=== PATIENT | female | born 1940 | race African-American/Black ===

== ENCOUNTER 2016-08-22 17:35 | Inpatient (IN) | payer MEDICARE, MEDICAID ==
[~2016-08-22] VITALS: Ht 154.9 cm; Wt 59.0 kg
[~2016-08-22 17:35] MED LIST: ACET-2178 PO; CLON0.1T PO; FERR-63 PO; HYDR-523 PO; LEVO25TA7 PO; LISI-604 PO; OMEP20TA80 PO; TRAM50TA3 PO
[2016-08-22] MEDS ORDERED: SODIUM CHLORIDE 0.9% 500 ML IV ONE (18:00)
[2016-08-22 19:00] LABS: BASOPHILS % 0.3 % (0.0-2.0); EOSINOPHILS % 0.2 % (0.0-5.0); HEMATOCRIT. 22.6 % (36.0-48.0); HEMOGLOBIN. 7.5 g/dL (12.0-16.0); LYMPHOCYTES % 27.1 % (20.0-50.0); MEAN CORPUSCULAR HEMOGLOBIN 27.6 pg (28.0-32.0); MEAN CORPUSCULAR HGB CONC 33.3 g/dL (31.0-37.0); MEAN CORPUSCULAR VOLUME 82.9 fL (81.0-99.0); MEAN PLATELET VOLUME 10.7 fl (7.4-10.4); MONOCYTES % 10.3 % (2.0-8.0); NEUTROPHILS % 62.1 % (40.0-76.0); PLATELET 149 x1000/uL (130-400); RED BLOOD CELL COUNT 2.73 mill/uL (4.2-5.4); RED CELL DISTRIBUTION WIDTH 19.3 % (11.6-14.6); WHITE BLOOD COUNT 7.6 x1000/uL (4.5-11.0)
[2016-08-22 19:01] LABS: DIFFERENTIAL COMMENT 1
[2016-08-22 19:13] LABS: INR 1.2; PARTIAL THROMBOPLASTIN TIME 30.8 sec (24.0-34.0); PROTHROMBIN TIME 12.6 sec
[2016-08-22 19:16] LABS: ALANINE AMINOTRANSFERASE 8 IU/L (13-61); ALBUMIN 2.4 g/dL (3.4-5.0); ANION GAP 14; CARBON DIOXIDE 29 mEq/L (21-32); CHLORIDE 97 mEq/L (98-107); INDEX HEMOLYSI 1 (1-3); INDEX ICTERIC 1 (1-4); INDEX LIPEMIC 1 (1-3); TROPONIN I 0.05 ng/mL (0.00-0.04); UREA NITROGEN BLOOD 14 mg/dL (7-21); eGFR > 60 mL/min (>60)
[2016-08-22] MEDS ORDERED: INSULIN REGULAR (DRIP) 100 UNITS in SODIUM CHLORIDE 0.9% 100 ML IV ONE (20:15)
[2016-08-22 20:20] LABS: CLARITY URINE CLEAR (CLEAR); COLOR URINE YELLOW (YELLOW); GLUCOSE URINE 3+ (NEGATIVE); KETONES URINE 1+ (NEGATIVE); LEUKOCYTE ESTERASE URINE NEGATIVE (NEGATIVE); NITRITE URINE NEGATIVE (NEGATIVE); OCCULT BLOOD URINE 1+ (NEGATIVE); PH URINE 5.5 (4.5-8.0); PROTEIN URINE 1+ (NEGATIVE); SPECIFIC GRAVITY URINE 1.042 (1.005-1.030)
[2016-08-22] MEDS ORDERED: KETOROLAC 30MG/ML VIAL IV ONE (20:30)
[2016-08-22] MEDS ORDERED: INSULIN REGULAR (DRIP) 100 UNITS in SODIUM CHLORIDE 0.9% 100 ML IV NR (20:30)
[2016-08-22 20:35] LABS: BACTERIA URINE TRACE; RBC URINE 0-2 /hpf (0-2); SQUAMOUS EPITHELIAL CELL URINE FEW /lpf (RARE/1+); WBC URINE 0-2 /hpf (0-2)
[2016-08-22 20:37] LABS: *AMPHETAMINES SCREEN URINE NEGATIVE (NEGATIVE); *BARBITURATES SCREEN URINE NEGATIVE (NEGATIVE); *BENZODIAZEPINES SCREEN URINE NEGATIVE (NEGATIVE); *COCAINE SCREEN URINE NEGATIVE (NEGATIVE); CANNABINOID URINE SCREEN NEGATIVE (NEGATIVE); ECSTASY MDMA SCREEN URINE NEGATIVE (NEGATIVE); METHADONE URINE SCREEN NEGATIVE (NEGATIVE); OPIATES URINE SCREEN NEGATIVE (NEGATIVE); PHENCYCLIDINE URINE SCREEN NEGATIVE (NEGATIVE)
[2016-08-22] MEDS ORDERED: DEXTROSE 50% WATER 50ML SYRINGE IV PRN (22:45)
[2016-08-22] MEDS ORDERED: ACETAMINOPHEN 650MG/20.3ML UDC PO PRN (22:45)
[2016-08-22] MEDS ORDERED: PIPERACILLIN/TAZ 2.25G PREMIX 50 ML IV SCH (22:45)
[2016-08-22 23:40] VITALS: BP 120/52
[2016-08-23] MEDS: MORPHINE SULFATE 4 MG/ML CPJ (NOT FOR IM USE) IV PRN ×3 (00:15→22:16)
[2016-08-23] MEDS: SODIUM CHLORIDE 0.9% 1,000 ML IV SCH ×2 (01:18→12:05)
[2016-08-23] MEDS ORDERED: VANCOMYCIN 1 G PREMIX 200 ML IV NR (03:00)
[2016-08-23 04:00] VITALS: BP 110/57
[2016-08-23] MEDS: BLOOD SUGAR DIAGNOSTIC STRIP TEST SCH ×4 (06:26→20:44)
[2016-08-23 08:00] VITALS: BP 125/61
[2016-08-23] MEDS: PANTOPRAZOLE SODIUM 40 MG/VIAL IV SCH (09:00)
[2016-08-23] MEDS: INSULIN LISPRO 100 UNITS/ML SUBCUT SCH ×5 (09:07→21:22)
[2016-08-23 11:58] VITALS: BP 131/68
[2016-08-23] MEDS: INSULIN DETEMIR UD 100 UNITS/ML SYR SUBCUT SCH ×2 (14:55→21:33)
[2016-08-23] MEDS: CLINDAMYCIN 600 MG in DEXTROSE 5% WATER 50 ML IV SCH ×2 (14:58→22:46)
[2016-08-23] MEDS: VANCOMYCIN 750 MG PREMIX 150 ML IV SCH (15:52)
[2016-08-23 15:59] VITALS: BP 106/85
[2016-08-23 17:53] LABS: HEMATOCRIT 23.6 % (36.0-48.0); HEMOGLOBIN 7.8 g/dL (12.0-16.0); MEAN CORPUSCULAR HEMOGLOBIN 27.3 pg (28.0-32.0); MEAN CORPUSCULAR HGB CONC 32.9 g/dL (31.0-37.0); PLATELET 141 x1000/uL (130-400); RED BLOOD CELL COUNT 2.84 mill/uL (4.2-5.4); RED CELL DISTRIBUTION WIDTH 18.5 % (11.6-14.6)
[2016-08-23 18:22] LABS: ALANINE AMINOTRANSFERASE 12 IU/L (13-61); ALBUMIN 2.2 g/dL (3.4-5.0); ANION GAP 10; BILIRUBIN DIRECT 0.2 mg/dL (0.0-0.2); CALCIUM 8.9 mg/dL (8.5-10.1); CARBON DIOXIDE 29 mEq/L (21-32); CHLORIDE 99 mEq/L (98-107); INDEX HEMOLYSI 1 (1-3); INDEX ICTERIC 1 (1-4); INDEX LIPEMIC 1 (1-3); IRON 83 ug/dL (50-175); PHOSPHORUS 1.8 mg/dL (2.5-4.9); TOTAL IRON BINDING CAPACITY 203 ug/dL (250-450); UREA NITROGEN BLOOD 12 mg/dL (7-21); URIC ACID 3.8 mg/dL (2.6-7.2); eGFR > 60 mL/min (>60)
[2016-08-23 20:00] VITALS: BP 139/74
[2016-08-23] MEDS ORDERED: POTASSIUM PHOS,M-BASIC-D-BASIC 20 MMOL in DEXT 5% WATER 243.3333 ML IV NR (21:00)
[2016-08-24] VITALS: BP 122/76
[2016-08-24] MEDS: SODIUM CHLORIDE 0.9% 1,000 ML IV SCH ×2 (01:25→14:09)
[2016-08-24] MEDS: MORPHINE SULFATE 4 MG/ML CPJ (NOT FOR IM USE) IV PRN ×2 (02:57→15:41)
[2016-08-24] MEDS: VANCOMYCIN 750 MG PREMIX 150 ML IV SCH ×2 (02:59→15:01)
[2016-08-24 04:00] VITALS: BP 125/81
[2016-08-24] MEDS: CLINDAMYCIN 600 MG in DEXTROSE 5% WATER 50 ML IV SCH ×3 (05:36→21:33)
[2016-08-24 06:43] LABS: HEMATOCRIT 22.7 % (36.0-48.0); HEMOGLOBIN 7.5 g/dL (12.0-16.0); MEAN CORPUSCULAR HEMOGLOBIN 27.2 pg (28.0-32.0); MEAN CORPUSCULAR HGB CONC 33.1 g/dL (31.0-37.0); MEAN CORPUSCULAR VOLUME 82.3 fL (81.0-99.0); RED BLOOD CELL COUNT 2.75 mill/uL (4.2-5.4); RED CELL DISTRIBUTION WIDTH 18.7 % (11.6-14.6); WHITE BLOOD COUNT 6.9 x1000/uL (4.5-11.0)
[2016-08-24] MEDS: LEVOTHYROXINE SODIUM 25MCG TABLET PO SCH (06:51)
[2016-08-24] MEDS: BLOOD SUGAR DIAGNOSTIC STRIP TEST SCH ×4 (06:53→21:34)
[2016-08-24 07:14] LABS: CHLORIDE 100 mEq/L (98-107); INDEX HEMOLYSI 1 (1-3); INDEX ICTERIC 1 (1-4); INDEX LIPEMIC 1 (1-3)
[2016-08-24 07:26] LABS: ALANINE AMINOTRANSFERASE 9 IU/L (13-61); ALBUMIN 2.1 g/dL (3.4-5.0); ANION GAP 13; BILIRUBIN DIRECT < 0.1 mg/dL (0.0-0.2); CALCIUM 8.7 mg/dL (8.5-10.1); CARBON DIOXIDE 28 mEq/L (21-32); IRON 76 ug/dL (50-175); PHOSPHORUS 2.9 mg/dL (2.5-4.9); TOTAL IRON BINDING CAPACITY 199 ug/dL (250-450); UREA NITROGEN BLOOD 11 mg/dL (7-21); eGFR > 60 mL/min (>60)
[2016-08-24 07:46] LABS: PLATELET 141 x1000/uL (130-400)
[2016-08-24 08:00] VITALS: BP 147/82
[2016-08-24] MEDS: PANTOPRAZOLE SODIUM 40 MG/VIAL IV SCH (09:16)
[2016-08-24] MEDS: INSULIN LISPRO 100 UNITS/ML SUBCUT SCH ×7 (09:20→21:44)
[2016-08-24] MEDS: INSULIN DETEMIR UD 100 UNITS/ML SYR SUBCUT SCH ×2 (11:09→21:45)
[2016-08-24 12:17] VITALS: BP 130/90
[2016-08-24 16:00] VITALS: BP 137/80
[2016-08-24 20:00] VITALS: BP 159/88
[2016-08-25] VITALS: BP 157/77
[2016-08-25] MEDS: MORPHINE SULFATE 4 MG/ML CPJ (NOT FOR IM USE) IV PRN ×3 (00:14→21:55)
[2016-08-25 04:00] VITALS: BP 158/80
[2016-08-25] MEDS ORDERED: VANCOMYCIN 1 G PREMIX 200 ML IV SCH (06:00)
[2016-08-25 06:04] LABS: BASOPHILS % 0.3 % (0.0-2.0); DIFFERENTIAL COMMENT 0; EOSINOPHILS % 1.3 % (0.0-5.0); HEMATOCRIT. 22.9 % (36.0-48.0); HEMOGLOBIN. 7.5 g/dL (12.0-16.0); LYMPHOCYTES % 43.5 % (20.0-50.0); MEAN CORPUSCULAR HEMOGLOBIN 26.7 pg (28.0-32.0); MEAN CORPUSCULAR HGB CONC 32.5 g/dL (31.0-37.0); MEAN CORPUSCULAR VOLUME 82.2 fL (81.0-99.0); MEAN PLATELET VOLUME 10.2 fl (7.4-10.4); MONOCYTES % 10.3 % (2.0-8.0); NEUTROPHILS % 44.6 % (40.0-76.0); PLATELET 132 x1000/uL (130-400); RED BLOOD CELL COUNT 2.79 mill/uL (4.2-5.4); RED CELL DISTRIBUTION WIDTH 18.7 % (11.6-14.6)
[2016-08-25 06:28] LABS: ALANINE AMINOTRANSFERASE 10 IU/L (13-61); ANION GAP 12; CALCIUM 8.4 mg/dL (8.5-10.1); CARBON DIOXIDE 30 mEq/L (21-32); CHLORIDE 102 mEq/L (98-107); HDL CHOLESTEROL 23 mg/dL (40-59); INDEX HEMOLYSI 1 (1-3); INDEX ICTERIC 1 (1-4); INDEX LIPEMIC 1 (1-3); LDL CHOLESTEROL 60 mg/dL (5-100); PHOSPHORUS 2.3 mg/dL (2.5-4.9); PREALBUMIN 8.3 mg/dL (20.0-40.0); TRIGLYCERIDE 137 mg/dL (0-150); UREA NITROGEN BLOOD 9 mg/dL (7-21); URIC ACID 2.8 mg/dL (2.6-7.2); eGFR > 60 mL/min (>60)
[2016-08-25] MEDS: CLINDAMYCIN 600 MG in DEXTROSE 5% WATER 50 ML IV SCH ×3 (06:41→21:55)
[2016-08-25] MEDS: LEVOTHYROXINE SODIUM 25MCG TABLET PO SCH (06:42)
[2016-08-25] MEDS: BLOOD SUGAR DIAGNOSTIC STRIP TEST SCH ×4 (06:42→21:55)
[2016-08-25] MEDS: INSULIN LISPRO 100 UNITS/ML SUBCUT SCH ×8 (06:43→21:54)
[2016-08-25] MEDS: SODIUM CHLORIDE 0.9% 1,000 ML IV SCH ×2 (06:47→17:25)
[2016-08-25 08:00] VITALS: BP 155/80
[2016-08-25] MEDS: PANTOPRAZOLE SODIUM 40 MG/VIAL IV SCH (09:00)
[2016-08-25] MEDS: INSULIN DETEMIR UD 100 UNITS/ML SYR SUBCUT SCH ×2 (10:16→21:53)
[2016-08-25] MEDS ORDERED: POTASSIUM CHLORIDE 20MEQ TABLET SR PO SCH (10:45)
[2016-08-25] MEDS ORDERED: LIDOCAINE HCL 1% 20ML VIAL (Pyxis) INJ INJ SCH (11:00)
[2016-08-25] MEDS ORDERED: MAGNESIUM HYDROXIDE 400MG/5ML 30ML UDC PO PRN (11:00)
[2016-08-25 11:26] LABS: INDEX HEMOLYSI 1 (1-3); INDEX ICTERIC 1 (1-4); INDEX LIPEMIC 1 (1-3); IRON 77 ug/dL (50-175); TOTAL IRON BINDING CAPACITY 220 ug/dL (250-450)
[2016-08-25] MEDS: LISINOPRIL 20MG TABLET PO SCH (11:32)
[2016-08-25 12:00] VITALS: BP 143/107
[2016-08-25] MEDS ORDERED: AMIKACIN SULFATE 440 MG in SODIUM CHLORIDE 0.9% 100 ML IV SCH (12:00)
[2016-08-25 20:00] VITALS: BP 156/87
[2016-08-25] MEDS ORDERED: ZOLPIDEM TARTRATE 5MG TABLET PO PRN (21:00)
[2016-08-26] VITALS: BP 164/84
[2016-08-26 04:00] VITALS: BP 156/80
[2016-08-26] MEDS: AMIKACIN SULFATE 300 MG in SODIUM CHLORIDE 0.9% 100 ML IV SCH ×2 (05:03→18:08)
[2016-08-26] MEDS: MORPHINE SULFATE 4 MG/ML CPJ (NOT FOR IM USE) IV PRN ×2 (05:03→23:27)
[2016-08-26] MEDS: SODIUM CHLORIDE 0.9% 1,000 ML IV SCH ×2 (05:16→19:59)
[2016-08-26] MEDS: BLOOD SUGAR DIAGNOSTIC STRIP TEST SCH ×4 (06:16→21:35)
[2016-08-26] MEDS: CLINDAMYCIN 600 MG in DEXTROSE 5% WATER 50 ML IV SCH ×2 (06:20→14:11)
[2016-08-26] MEDS: LEVOTHYROXINE SODIUM 25MCG TABLET PO SCH (06:21)
[2016-08-26 07:24] LABS: ANION GAP 11; CALCIUM 8.5 mg/dL (8.5-10.1); CARBON DIOXIDE 30 mEq/L (21-32); CHLORIDE 103 mEq/L (98-107); INDEX HEMOLYSI 1 (1-3); INDEX ICTERIC 1 (1-4); INDEX LIPEMIC 1 (1-3); UREA NITROGEN BLOOD 8 mg/dL (7-21); eGFR > 60 mL/min (>60)
[2016-08-26 08:00] VITALS: BP 143/69
[2016-08-26] MEDS: INSULIN LISPRO 100 UNITS/ML SUBCUT SCH ×7 (09:08→21:54)
[2016-08-26] MEDS: PANTOPRAZOLE SODIUM 40 MG/VIAL IV SCH (09:12)
[2016-08-26] MEDS: FOLIC ACID 1MG TABLET PO SCH (09:12)
[2016-08-26] MEDS: LISINOPRIL 20MG TABLET PO SCH (09:12)
[2016-08-26 10:03] LABS: CLARITY URINE CLEAR (CLEAR); COLOR URINE YELLOW (YELLOW); GLUCOSE URINE NEGATIVE (NEGATIVE); KETONES URINE NEGATIVE (NEGATIVE); LEUKOCYTE ESTERASE URINE TRACE (NEGATIVE); NITRITE URINE NEGATIVE (NEGATIVE); OCCULT BLOOD URINE TRACE (NEGATIVE); PROTEIN URINE NEGATIVE (NEGATIVE); SPECIFIC GRAVITY URINE 1.012 (1.005-1.030); UROBILINOGEN URINE 0.2 E.U./dL (0.2-1.0)
[2016-08-26 10:25] LABS: SQUAMOUS EPITHELIAL CELL URINE FEW /lpf (RARE/1+)
[2016-08-26 10:26] LABS: BACTERIA URINE NONE SEEN; RBC URINE 0-2 /hpf (0-2); WBC URINE 0-2 /hpf (0-2)
[2016-08-26] MEDS: INSULIN DETEMIR UD 100 UNITS/ML SYR SUBCUT SCH ×2 (10:54→21:55)
[2016-08-26 12:00] VITALS: BP 97/48
[2016-08-26 16:00] VITALS: BP 169/81
[2016-08-26] MEDS: DIPHENOXYLATE/ATROPINE 2.5/0.025MG TABLET PO PRN ×2 (18:08→21:54)
[2016-08-26 20:00] VITALS: BP 151/81
[2016-08-27] VITALS: BP 157/75
[2016-08-27 04:00] VITALS: BP 153/77
[2016-08-27] MEDS: MORPHINE SULFATE 2 MG/ML CPJ (NOT FOR IM USE) IV PRN ×2 (05:10→12:40)
[2016-08-27] MEDS: AMIKACIN SULFATE 300 MG in SODIUM CHLORIDE 0.9% 100 ML IV SCH ×2 (06:00→06:54)
[2016-08-27 06:18] LABS: BASOPHILS % 0.4 % (0.0-2.0); EOSINOPHILS % 1.2 % (0.0-5.0); HEMATOCRIT. 22.9 % (36.0-48.0); HEMOGLOBIN. 7.6 g/dL (12.0-16.0); LYMPHOCYTES % 36.4 % (20.0-50.0); MEAN CORPUSCULAR HEMOGLOBIN 27.2 pg (28.0-32.0); MEAN CORPUSCULAR HGB CONC 33.1 g/dL (31.0-37.0); MEAN CORPUSCULAR VOLUME 82.1 fL (81.0-99.0); MEAN PLATELET VOLUME 10.1 fl (7.4-10.4); MONOCYTES % 6.7 % (2.0-8.0); NEUTROPHILS % 55.3 % (40.0-76.0); PLATELET 120 x1000/uL (130-400); RED BLOOD CELL COUNT 2.79 mill/uL (4.2-5.4); RED CELL DISTRIBUTION WIDTH 18.7 % (11.6-14.6)
[2016-08-27 06:52] LABS: DIFFERENTIAL COMMENT 1
[2016-08-27] MEDS: LEVOTHYROXINE SODIUM 25MCG TABLET PO SCH (06:55)
[2016-08-27] MEDS: BLOOD SUGAR DIAGNOSTIC STRIP TEST SCH ×3 (06:55→17:20)
[2016-08-27] MEDS: INSULIN LISPRO 100 UNITS/ML SUBCUT SCH ×6 (07:16→17:50)
[2016-08-27 08:00] VITALS: BP 145/67
[2016-08-27] MEDS: PANTOPRAZOLE SODIUM 40 MG/VIAL IV SCH (08:38)
[2016-08-27] MEDS: FOLIC ACID 1MG TABLET PO SCH (08:38)
[2016-08-27] MEDS: LISINOPRIL 20MG TABLET PO SCH (08:39)
[2016-08-27] MEDS: SODIUM CHLORIDE 0.9% 1,000 ML IV SCH (08:41)
[2016-08-27] MEDS: INSULIN DETEMIR UD 100 UNITS/ML SYR SUBCUT SCH (10:12)
[2016-08-27 12:00] VITALS: BP 153/64
[2016-08-27 16:00] VITALS: BP 141/69
[2016-08-27] MEDS ORDERED: INSU3INS6 SUBCUT (16:18)
[2016-08-27 16:26] VITALS: BP 141/69
== END 2016-08-27 18:40 | disposition home or self-care (01) | DRG 862 ==
LOC: ER 17:40 → CVICU 22:12 → 6WST 23:49
PROVIDERS: ADMIT Specialist; ATTEND Specialist
PROC: 02HV33Z Insertion of Infusion Device into Superior Vena Cava, Percutaneous Approach (ICD-10-PCS; principal; 2016-08-25)
PROC: B548ZZA Ultrasonography of Superior Vena Cava, Guidance (ICD-10-PCS; 2016-08-25)
PROC: B5181ZA Fluoroscopy of Superior Vena Cava using Low Osmolar Contrast, Guidance (ICD-10-PCS; 2016-08-25)
DX: T81.4XXA Infection following a procedure, initial encounter (principal); E43 Unspecified severe protein-calorie malnutrition; J18.9 Pneumonia, unspecified organism; L02.211 Cutaneous abscess of abdominal wall; D62 Acute posthemorrhagic anemia; K57.32 Diverticulitis of large intestine without perforation or abscess without bleeding; L03.311 Cellulitis of abdominal wall; E11.65 Type 2 diabetes mellitus with hyperglycemia; I10 Essential (primary) hypertension; E87.6 Hypokalemia; K66.0 Peritoneal adhesions (postprocedural) (postinfection); D63.8 Anemia in other chronic diseases classified elsewhere; E65 Localized adiposity; D64.9 Anemia, unspecified; Z90.710 Acquired absence of both cervix and uterus; Z91.14 Patient's other noncompliance with medication regimen; Z90.49 Acquired absence of other specified parts of digestive tract; Z79.899 Other long term (current) drug therapy; Z88.0 Allergy status to penicillin; Z68.24 Body mass index [BMI] 24.0-24.9, adult
CPT/HCPCS: 36415; 36569; 71010; 74176; 76937; 77001; 80048; 80053; 80061; 80076; 80150; 80202; 80305; 81001; 82607; 82728; 82746; 82962; 83036; 83540; 83550; 83605; 83735; 83880; 84100; 84134; 84484; 84550; 85025; 85027; 85610; 85651; 85730; 86850; 86900; 86920; 87040; 87086; 87493; 93005; 96361; 96365; 96375; 99291; A6261; C1725; C1893; C9113; J0278; J1815; J1885; J2270; J3370; J3490; J7030; J7040; J7050; J7060

== ENCOUNTER 2017-01-21 14:14 | Inpatient (IN) | payer MEDICARE, MEDICAID ==
[~2017-01-21] VITALS: Ht 162.6 cm; Wt 83.5 kg
[~2017-01-21 14:14] MED LIST changes: -ACET-2178 PO; +ATEN50TA PO; -CLON0.1T PO; -FERR-63 PO; -HYDR-523 PO; -LEVO25TA7 PO; -LISI-604 PO; +METF500T4 PO; -OMEP20TA80 PO; +TOUJEO; -TRAM50TA3 PO; +VITAMIN D3 PO
[2017-01-21] MEDS ORDERED: ONDANSETRON HCL 4MG/2ML VIAL IV STA (14:57)
[2017-01-21] MEDS ORDERED: MORPHINE SULFATE 4 MG/ML CPJ (NOT FOR IM USE) IV STA (14:57)
[2017-01-21 15:18] LABS: HEMATOCRIT. 28.2 % (36.0-48.0); MEAN CORPUSCULAR HEMOGLOBIN 24.6 pg (28.0-32.0); MEAN PLATELET VOLUME 8.6 fl (7.4-10.4); PLATELET 204 x1000/uL (130-400); RED BLOOD CELL COUNT 3.67 mill/uL (4.2-5.4); RED CELL DISTRIBUTION WIDTH 26.6 % (11.6-14.6)
[2017-01-21 15:30] LABS: CARBON DIOXIDE 31 mEq/L (21-32); CHLORIDE 98 mEq/L (98-107)
[2017-01-21 16:00] LABS: ATYPICAL LYMPHOCYTES 2; NUCLEATED RED BLOOD CELLS 4 /100 WBC; PLATELET ESTIMATE NORMAL
[2017-01-21 16:22] LABS: CLARITY URINE TURBID (CLEAR); COLOR URINE DARK YELLOW (YELLOW); GLUCOSE URINE NEGATIVE (NEGATIVE); KETONES URINE TRACE (NEGATIVE); LEUKOCYTE ESTERASE URINE 1+ (NEGATIVE); NITRITE URINE NEGATIVE (NEGATIVE); OCCULT BLOOD URINE 1+ (NEGATIVE); PH URINE 5.5 (4.5-8.0); PROTEIN URINE 3+ (NEGATIVE); SPECIFIC GRAVITY URINE 1.032 (1.005-1.030)
[2017-01-21] MEDS ORDERED: MORPHINE SULFATE 4 MG/ML CPJ (NOT FOR IM USE) IV NR (18:15)
[2017-01-21] MEDS ORDERED: LEVOFLOXACIN 750MG PREMIX 150 ML IV NR (18:15)
[2017-01-21] MEDS ORDERED: LORAZEPAM 2MG/ML CPJ IV NR (18:15)
[2017-01-21 21:00] VITALS: BP 139/64
[2017-01-21 21:30] VITALS: BP 139/64
[2017-01-21] MEDS ORDERED: DOCU-150 PO (21:51)
[2017-01-21] MEDS ORDERED: FERR-63 PO (21:51)
[2017-01-21] MEDS ORDERED: BRIM15DR2 EACHEYE (21:53)
[2017-01-21] MEDS ORDERED: TIMO15DR12 LEFTEYE (21:55)
[2017-01-21] MEDS ORDERED: TRAM50TA3 PO (21:57)
[2017-01-21] MEDS ORDERED: ONDANSETRON HCL 4MG/2ML VIAL IV PRN (23:15)
[2017-01-21] MEDS ORDERED: DEXTROSE 50% WATER 50ML SYRINGE IV PRN (23:15)
[2017-01-21] MEDS ORDERED: TRAMADOL 50MG TABLET PO PRN (23:15)
[2017-01-22] VITALS: BP 117/47
[2017-01-22] MEDS ORDERED: MAGNESIUM HYDROXIDE 400MG/5ML 30ML UDC PO NR
[2017-01-22 04:00] VITALS: BP 139/67
[2017-01-22] MEDS: BLOOD SUGAR DIAGNOSTIC STRIP TEST SCH ×4 (06:25→22:05)
[2017-01-22] MEDS: INSULIN LISPRO 100 UNITS/ML SUBCUT SCH ×4 (06:36→22:14)
[2017-01-22 07:36] VITALS: BP 141/54
[2017-01-22] MEDS: BRIMONIDINE 0.2% OPHTH DROPS 5ML BOTHEYE SCH ×2 (08:13→16:34)
[2017-01-22] MEDS: DOCUSATE SODIUM 100MG CAPSULE PO SCH ×3 (08:14→16:56)
[2017-01-22] MEDS: TIMOLOL MALEATE 0.5% OPHTH DROPS 5ML LEFTEYE SCH (08:14)
[2017-01-22] MEDS: ATENOLOL 50 MG TABLET PO SCH ×2 (08:14→22:13)
[2017-01-22] MEDS ORDERED: MAGNESIUM HYDROXIDE 400MG/5ML 30ML UDC PO PRN (09:00)
[2017-01-22] MEDS: ACETAMINOPHEN 325MG TABLET PO PRN (10:36)
[2017-01-22 11:38] VITALS: BP 132/54
[2017-01-22] MEDS ORDERED: BISACODYL 10MG SUPP PR PRN (13:15)
[2017-01-22] MEDS ORDERED: NA PHOS,M-B/NA PHOS,DI-BA ENEMA 118ML PR NR ×2 (13:15→14:15)
[2017-01-22] MEDS ORDERED: MAGNESIUM CITRATE 300ML SOLUTION PO NR (15:00)
[2017-01-22 15:59] VITALS: BP 142/46
[2017-01-22] MEDS: LEVOFLOXACIN 500MG PREMIX 100 ML IV SCH (18:04)
[2017-01-22] MEDS ORDERED: KETOROLAC 15MG/ML VIAL IV PRN (19:45)
[2017-01-22] MEDS ORDERED: MAGNESIUM CITRATE 300ML SOLUTION PO PRN (19:45)
[2017-01-22 20:00] VITALS: BP 120/97
[2017-01-22] MEDS: INSULIN DETEMIR UD 100 UNITS/ML SYR SUBCUT SCH (22:14)
[2017-01-22] MEDS: MORPHINE SULFATE 4 MG/ML CPJ (NOT FOR IM USE) IV PRN (22:43)
[2017-01-23] VITALS: BP 117/52
[2017-01-23] MEDS: MORPHINE SULFATE 4 MG/ML CPJ (NOT FOR IM USE) IV PRN (02:32)
[2017-01-23 04:00] VITALS: BP 127/62
[2017-01-23] MEDS: BLOOD SUGAR DIAGNOSTIC STRIP TEST SCH ×4 (05:54→21:10)
[2017-01-23] MEDS: INSULIN LISPRO 100 UNITS/ML SUBCUT SCH ×4 (06:17→21:34)
[2017-01-23 07:10] LABS: BASOPHILS % 1.9 % (0.0-2.0); EOSINOPHILS % 0.3 % (0.0-5.0); HEMATOCRIT. 26.4 % (36.0-48.0); HEMOGLOBIN. 8.5 g/dL (12.0-16.0); LYMPHOCYTES % 85.3 % (20.0-50.0); MEAN CORPUSCULAR HEMOGLOBIN 24.8 pg (28.0-32.0); MEAN PLATELET VOLUME 8.5 fl (7.4-10.4); MONOCYTES % 0.4 % (2.0-8.0); NEUTROPHILS % 12.1 % (40.0-76.0); PLATELET 152 x1000/uL (130-400); RED BLOOD CELL COUNT 3.43 mill/uL (4.2-5.4); RED CELL DISTRIBUTION WIDTH 26.8 % (11.6-14.6)
[2017-01-23 07:34] LABS: CARBON DIOXIDE 34 mEq/L (21-32); CHLORIDE 101 mEq/L (98-107); PHOSPHORUS 2.7 mg/dL (2.5-4.9)
[2017-01-23 07:38] VITALS: BP 133/73
[2017-01-23 07:43] LABS: TOTAL IRON BINDING CAPACITY 198 ug/dL (250-450)
[2017-01-23] MEDS: CYANOCOBALAMIN/FA/PYRIDOXINE TABLET PO SCH ×2 (09:14→17:49)
[2017-01-23] MEDS: DOCUSATE SODIUM 100MG CAPSULE PO SCH ×3 (09:14→17:49)
[2017-01-23] MEDS: BRIMONIDINE 0.2% OPHTH DROPS 5ML BOTHEYE SCH ×2 (09:15→17:49)
[2017-01-23] MEDS: ATENOLOL 50 MG TABLET PO SCH ×2 (09:15→21:32)
[2017-01-23] MEDS: IRON SUCROSE COMPLEX 100 MG/5 ML ML IV SCH ×2 (09:16→17:48)
[2017-01-23] MEDS: TIMOLOL MALEATE 0.5% OPHTH DROPS 5ML LEFTEYE SCH (09:16)
[2017-01-23] MEDS: MORPHINE SULFATE 2 MG/ML CPJ (NOT FOR IM USE) IV PRN ×2 (09:17→17:43)
[2017-01-23] MEDS: INSULIN DETEMIR UD 100 UNITS/ML SYR SUBCUT SCH ×2 (09:19→21:34)
[2017-01-23] MEDS ORDERED: LIDOCAINE HCL 1% 20ML VIAL (Pyxis) INJ ONE (11:09)
[2017-01-23] MEDS ORDERED: SODIUM BICARBONATE 4% (2.4MEQ) 5ML VIAL IV ONE (11:09)
[2017-01-23 16:00] VITALS: BP 144/79
[2017-01-23] MEDS: LEVOFLOXACIN 500MG PREMIX 100 ML IV SCH (17:43)
[2017-01-23 20:00] VITALS: BP 111/56
[2017-01-24] VITALS: BP 112/66
[2017-01-24] MEDS: MORPHINE SULFATE 2 MG/ML CPJ (NOT FOR IM USE) IV PRN ×4 (02:55→20:45)
[2017-01-24 04:00] VITALS: BP 117/68
[2017-01-24] MEDS: BLOOD SUGAR DIAGNOSTIC STRIP TEST SCH ×4 (06:12→21:18)
[2017-01-24] MEDS: INSULIN LISPRO 100 UNITS/ML SUBCUT SCH ×4 (06:21→21:00)
[2017-01-24 06:33] LABS: HEMATOCRIT. 26.1 % (36.0-48.0); HEMOGLOBIN. 8.4 g/dL (12.0-16.0); MEAN CORPUSCULAR HEMOGLOBIN 24.8 pg (28.0-32.0); MEAN CORPUSCULAR VOLUME 77.3 fL (81.0-99.0); PLATELET 116 x1000/uL (130-400); RED BLOOD CELL COUNT 3.38 mill/uL (4.2-5.4); RED CELL DISTRIBUTION WIDTH 27.1 % (11.6-14.6)
[2017-01-24 06:56] LABS: PLATELET ESTIMATE NORMAL
[2017-01-24 07:08] LABS: T4 FREE 1.14 ng/dL (0.76-1.46)
[2017-01-24 07:17] LABS: HEPATITIS B SURFACE ANTIGEN NEGATIVE
[2017-01-24 07:45] LABS: HEPATITIS B CORE AB IGM NEGATIVE
[2017-01-24 07:47] LABS: HEPATITIS A AB IGM NEGATIVE (NEGATIVE)
[2017-01-24 08:00] VITALS: BP 151/54
[2017-01-24] MEDS: BRIMONIDINE 0.2% OPHTH DROPS 5ML BOTHEYE SCH ×2 (08:03→17:14)
[2017-01-24] MEDS: ATENOLOL 50 MG TABLET PO SCH ×2 (08:04→21:00)
[2017-01-24] MEDS: CYANOCOBALAMIN/FA/PYRIDOXINE TABLET PO SCH ×2 (08:04→17:13)
[2017-01-24] MEDS: DOCUSATE SODIUM 100MG CAPSULE PO SCH ×3 (08:04→17:13)
[2017-01-24] MEDS: TIMOLOL MALEATE 0.5% OPHTH DROPS 5ML LEFTEYE SCH (08:04)
[2017-01-24] MEDS: IRON SUCROSE COMPLEX 100 MG/5 ML ML IV SCH (08:05)
[2017-01-24 08:39] LABS: CARCINO EMBRYONIC ANTIGEN < 0.1 ng/ml
[2017-01-24 09:32] LABS: ATYPICAL LYMPHOCYTES 3; NUCLEATED RED BLOOD CELLS 17 /100 WBC
[2017-01-24] MEDS: INSULIN DETEMIR UD 100 UNITS/ML SYR SUBCUT SCH ×2 (09:32→22:00)
[2017-01-24 09:34] LABS: PLATELET ESTIMATE SLIGHTLY DECREASED
[2017-01-24 12:00] VITALS: BP 132/65
[2017-01-24 16:00] VITALS: BP 134/74
[2017-01-24] MEDS: LEVOFLOXACIN 500MG PREMIX 100 ML IV SCH (18:04)
[2017-01-24 19:12] LABS: CLARITY URINE CLOUDY (CLEAR); COLOR URINE YELLOW (YELLOW); GLUCOSE URINE NEGATIVE (NEGATIVE); KETONES URINE NEGATIVE (NEGATIVE); LEUKOCYTE ESTERASE URINE NEGATIVE (NEGATIVE); NITRITE URINE NEGATIVE (NEGATIVE); OCCULT BLOOD URINE NEGATIVE (NEGATIVE); PH URINE >=9.0 (4.5-8.0); PROTEIN URINE 2+ (NEGATIVE); SPECIFIC GRAVITY URINE 1.016 (1.005-1.030)
[2017-01-24 20:00] VITALS: BP 131/84
[2017-01-24] MEDS: ZOLPIDEM TARTRATE 5MG TABLET PO PRN (23:15)
[2017-01-25] VITALS: BP 117/86
[2017-01-25 04:00] VITALS: BP 155/76
[2017-01-25] MEDS: BLOOD SUGAR DIAGNOSTIC STRIP TEST SCH ×4 (06:47→21:00)
[2017-01-25] MEDS: INSULIN LISPRO 100 UNITS/ML SUBCUT SCH ×5 (06:48→22:07)
[2017-01-25 07:48] LABS: HEMATOCRIT. 27.2 % (36.0-48.0); HEMOGLOBIN. 8.7 g/dL (12.0-16.0); MEAN CORPUSCULAR HEMOGLOBIN 24.7 pg (28.0-32.0); MEAN CORPUSCULAR VOLUME 77.6 fL (81.0-99.0); MEAN PLATELET VOLUME 8.3 fl (7.4-10.4); PLATELET 97 x1000/uL (130-400); RED CELL DISTRIBUTION WIDTH 26.4 % (11.6-14.6)
[2017-01-25 08:00] VITALS: BP 97/76
[2017-01-25 08:36] LABS: CARBON DIOXIDE 31 mEq/L (21-32); CHLORIDE 100 mEq/L (98-107); PHOSPHORUS 3.1 mg/dL (2.5-4.9)
[2017-01-25] MEDS: ATENOLOL 50 MG TABLET PO SCH ×2 (08:50→20:19)
[2017-01-25] MEDS: IRON SUCROSE COMPLEX 100 MG/5 ML ML IV SCH (08:59)
[2017-01-25] MEDS: DOCUSATE SODIUM 100MG CAPSULE PO SCH ×3 (09:00→17:00)
[2017-01-25] MEDS: TIMOLOL MALEATE 0.5% OPHTH DROPS 5ML LEFTEYE SCH (09:00)
[2017-01-25] MEDS: CYANOCOBALAMIN/FA/PYRIDOXINE TABLET PO SCH ×2 (09:00→17:00)
[2017-01-25] MEDS: BRIMONIDINE 0.2% OPHTH DROPS 5ML BOTHEYE SCH ×2 (09:01→17:00)
[2017-01-25] MEDS: INSULIN DETEMIR UD 100 UNITS/ML SYR SUBCUT SCH ×2 (09:55→22:08)
[2017-01-25 10:09] LABS: ATYPICAL LYMPHOCYTES 4; NUCLEATED RED BLOOD CELLS 7 /100 WBC; PLATELET ESTIMATE DECREASED
[2017-01-25 12:00] VITALS: BP_SYST 117; BP_SYST 193; BP_DIAS 78; BP_DIAS 87
[2017-01-25] MEDS: MORPHINE SULFATE 2 MG/ML CPJ (NOT FOR IM USE) IV PRN (13:58)
[2017-01-25 16:00] VITALS: BP 148/80
[2017-01-25] MEDS: MORPHINE SULFATE 4 MG/ML CPJ (NOT FOR IM USE) IV PRN ×3 (16:33→20:18)
[2017-01-25] MEDS: LEVOFLOXACIN 500MG PREMIX 100 ML IV SCH ×2 (19:00→19:40)
[2017-01-25 20:00] VITALS: BP 142/85
[2017-01-26] VITALS: BP 157/75
[2017-01-26] MEDS: ZOLPIDEM TARTRATE 5MG TABLET PO PRN (00:46)
[2017-01-26 04:00] VITALS: BP 155/77
[2017-01-26] MEDS: MORPHINE SULFATE 4 MG/ML CPJ (NOT FOR IM USE) IV PRN ×3 (07:01→20:43)
[2017-01-26] MEDS: INSULIN LISPRO 100 UNITS/ML SUBCUT SCH ×7 (07:10→20:48)
[2017-01-26] MEDS: BLOOD SUGAR DIAGNOSTIC STRIP TEST SCH ×4 (07:13→20:48)
[2017-01-26 08:00] VITALS: BP 158/77
[2017-01-26 08:58] LABS: HEMATOCRIT. 29.6 % (36.0-48.0); HEMOGLOBIN. 9.5 g/dL (12.0-16.0); MEAN CORPUSCULAR VOLUME 77.9 fL (81.0-99.0); RED CELL DISTRIBUTION WIDTH 27.2 % (11.6-14.6)
[2017-01-26] MEDS: IRON SUCROSE COMPLEX 100 MG/5 ML ML IV SCH (09:07)
[2017-01-26] MEDS: BRIMONIDINE 0.2% OPHTH DROPS 5ML BOTHEYE SCH ×2 (09:07→16:56)
[2017-01-26] MEDS: DOCUSATE SODIUM 100MG CAPSULE PO SCH ×3 (09:07→16:55)
[2017-01-26] MEDS: ATENOLOL 50 MG TABLET PO SCH ×2 (09:07→20:43)
[2017-01-26] MEDS: CYANOCOBALAMIN/FA/PYRIDOXINE TABLET PO SCH ×2 (09:07→16:55)
[2017-01-26] MEDS: TIMOLOL MALEATE 0.5% OPHTH DROPS 5ML LEFTEYE SCH (09:08)
[2017-01-26 09:30] LABS: CARBON DIOXIDE 31 mEq/L (21-32); CHLORIDE 99 mEq/L (98-107); PHOSPHORUS 3.2 mg/dL (2.5-4.9)
[2017-01-26] MEDS ORDERED: MIDAZOLAM HCL 2 MG/2 ML VIAL ONE (11:09)
[2017-01-26] MEDS ORDERED: PROPOFOL 200MG/20ML VIAL IV ONE (11:13)
[2017-01-26] MEDS ORDERED: SODIUM CHLORIDE 0.9% 1,000 ML IV SCH (11:32)
[2017-01-26] MEDS ORDERED: MORPHINE SULFATE 2 MG/ML CPJ (NOT FOR IM USE) IV PRN (11:45)
[2017-01-26] MEDS ORDERED: ONDANSETRON HCL 4MG/2ML VIAL IV PRN (11:45)
[2017-01-26 12:00] VITALS: BP 161/81
[2017-01-26 12:05] LABS: ATYPICAL LYMPHOCYTES 6; NUCLEATED RED BLOOD CELLS 4 /100 WBC
[2017-01-26 12:06] LABS: PLATELET ESTIMATE DECREASED
[2017-01-26 12:11] LABS: MEAN PLATELET VOLUME 8.3 fl (7.4-10.4); PLATELET 70 x1000/uL (130-400)
[2017-01-26] MEDS: INSULIN DETEMIR UD 100 UNITS/ML SYR SUBCUT SCH ×2 (12:25→21:56)
[2017-01-26 13:09] LABS: A/G RATIO 0.7 (0.7-1.7); ALBUMIN 3.1 g/dL (2.9-4.4); ALPHA-1-GLOBULIN 0.3 g/dL (0.0-0.4); ALPHA-2-GLOBULIN 0.7 g/dL (0.4-1.0); GAMMA GLOBULINS 2.8 g/dL (0.4-1.8); GLOBULIN TOTAL 4.7 g/dL (2.2-3.9); M-SPIKE Not Observed g/dL (Not Observed); TOTAL PROTEIN SERUM 7.8 g/dL (6.0-8.5)
[2017-01-26 16:00] VITALS: BP 155/67
[2017-01-26] MEDS: LEVOFLOXACIN 500MG PREMIX 100 ML IV SCH (18:04)
[2017-01-26 20:00] VITALS: BP 129/55
[2017-01-27] VITALS (7 sets, daily range): BP systolic 105–157; BP diastolic 55–78
[2017-01-27] MEDS: MORPHINE SULFATE 4 MG/ML CPJ (NOT FOR IM USE) IV PRN ×7 (01:09→22:14)
[2017-01-27] MEDS: INSULIN LISPRO 100 UNITS/ML SUBCUT SCH ×7 (06:31→21:00)
[2017-01-27] MEDS: BLOOD SUGAR DIAGNOSTIC STRIP TEST SCH ×4 (06:31→21:35)
[2017-01-27 08:15] LABS: HEPATITIS B SURFACE ANTIGEN NEGATIVE
[2017-01-27 08:43] LABS: HEPATITIS B CORE AB IGM NEGATIVE
[2017-01-27 08:44] LABS: HEPATITIS A AB IGM NEGATIVE (NEGATIVE)
[2017-01-27] MEDS: DOCUSATE SODIUM 100MG CAPSULE PO SCH ×3 (09:05→16:55)
[2017-01-27] MEDS: CYANOCOBALAMIN/FA/PYRIDOXINE TABLET PO SCH ×2 (09:05→16:56)
[2017-01-27] MEDS: ATENOLOL 50 MG TABLET PO SCH ×2 (09:06→20:07)
[2017-01-27] MEDS: TIMOLOL MALEATE 0.5% OPHTH DROPS 5ML LEFTEYE SCH (09:07)
[2017-01-27] MEDS: IRON SUCROSE COMPLEX 100 MG/5 ML ML IV SCH (09:07)
[2017-01-27] MEDS: BRIMONIDINE 0.2% OPHTH DROPS 5ML BOTHEYE SCH ×2 (09:07→17:09)
[2017-01-27] MEDS: INSULIN DETEMIR UD 100 UNITS/ML SYR SUBCUT SCH ×2 (10:25→21:38)
[2017-01-27] MEDS: LEVOFLOXACIN 500MG PREMIX 100 ML IV SCH (17:59)
[2017-01-28 00:39] VITALS: BP 132/58
[2017-01-28] MEDS: MORPHINE SULFATE 2 MG/ML CPJ (NOT FOR IM USE) IV PRN ×8 (00:58→19:57)
[2017-01-28 04:00] VITALS: BP 156/76
[2017-01-28 06:03] LABS: ALBUMIN URINE 53.5 % (.); ALPHA-2-GLOBULIN URINE 7.4 % (.); BETA GLOBULIN URINE 10.7 % (.); GAMMA GLOBULIN URINE 21.3 % (.); TOTAL PROTEIN RANDOM URINE 66.7 mg/dL (Not Estab.)
[2017-01-28] MEDS: BLOOD SUGAR DIAGNOSTIC STRIP TEST SCH ×4 (06:12→21:00)
[2017-01-28] MEDS: INSULIN LISPRO 100 UNITS/ML SUBCUT SCH ×7 (06:12→21:00)
[2017-01-28 08:00] VITALS: BP 102/78
[2017-01-28] MEDS: ATENOLOL 50 MG TABLET PO SCH ×2 (09:00→21:00)
[2017-01-28] MEDS: INSULIN DETEMIR UD 100 UNITS/ML SYR SUBCUT SCH ×2 (09:15→22:00)
[2017-01-28] MEDS: DOCUSATE SODIUM 100MG CAPSULE PO SCH ×3 (09:16→17:54)
[2017-01-28] MEDS: CYANOCOBALAMIN/FA/PYRIDOXINE TABLET PO SCH ×2 (09:16→18:15)
[2017-01-28] MEDS: TIMOLOL MALEATE 0.5% OPHTH DROPS 5ML LEFTEYE SCH (09:17)
[2017-01-28] MEDS: BRIMONIDINE 0.2% OPHTH DROPS 5ML BOTHEYE SCH ×2 (09:17→17:54)
[2017-01-28 12:00] VITALS: BP 130/74
[2017-01-28 14:30] VITALS: BP 159/63
[2017-01-28] MEDS: ACETAMINOPHEN 325MG TABLET PO PRN (18:15)
[2017-01-28] MEDS: LEVOFLOXACIN 500MG PREMIX 100 ML IV SCH (18:34)
[2017-01-28 19:54] VITALS: BP 135/59
[2017-01-28 20:31] LABS: CARBON DIOXIDE 26 mEq/L (21-32); CHLORIDE 97 mEq/L (98-107); PHOSPHORUS 2.4 mg/dL (2.5-4.9)
[2017-01-28] MEDS: DEXT 5%/0.45% NACL KCL 20MEQ/L 1,000 ML IV SCH (22:59)
[2017-01-29] VITALS: BP 107/61
[2017-01-29] MEDS: MORPHINE SULFATE 2 MG/ML CPJ (NOT FOR IM USE) IV PRN ×3 (00:41→07:36)
[2017-01-29 04:00] VITALS: BP 114/60
[2017-01-29 08:00] VITALS: BP 104/51
[2017-01-29] MEDS: DOCUSATE SODIUM 100MG CAPSULE PO SCH ×2 (08:29→12:35)
[2017-01-29] MEDS: TIMOLOL MALEATE 0.5% OPHTH DROPS 5ML LEFTEYE SCH (08:29)
[2017-01-29] MEDS: CYANOCOBALAMIN/FA/PYRIDOXINE TABLET PO SCH (08:29)
[2017-01-29] MEDS: BRIMONIDINE 0.2% OPHTH DROPS 5ML BOTHEYE SCH (08:30)
[2017-01-29] MEDS: ATENOLOL 50 MG TABLET PO SCH (08:33)
[2017-01-29] MEDS: INSULIN DETEMIR UD 100 UNITS/ML SYR SUBCUT SCH (09:55)
[2017-01-29 12:00] VITALS: BP 132/78
[2017-01-29] MEDS: BLOOD SUGAR DIAGNOSTIC STRIP TEST SCH (12:12)
[2017-01-29 12:33] LABS: CANCER ANTIGEN 125 15.2 U/mL (0.0-38.1); HELICOBACTER PYLORI AB IGG 6.2 U/mL (0.0-0.8)
[2017-01-29] MEDS: DEXT 5%/0.45% NACL KCL 20MEQ/L 1,000 ML IV SCH (12:36)
[2017-01-29] MEDS: INSULIN LISPRO 100 UNITS/ML SUBCUT SCH ×2 (12:37→12:38)
[2017-01-29 15:14] VITALS: BP 132/78
== END 2017-01-29 17:00 | disposition home or self-care (01) | DRG 809 ==
LOC: ER 14:28 → 8WST 19:06 → ENRESERV 20:12 → CMPBEDREQ 01-22 01:52
PROVIDERS: ADMIT Specialist; ATTEND Specialist
PROC: 02HV33Z Insertion of Infusion Device into Superior Vena Cava, Percutaneous Approach (ICD-10-PCS; 2017-01-23)
PROC: B5181ZA Fluoroscopy of Superior Vena Cava using Low Osmolar Contrast, Guidance (ICD-10-PCS; 2017-01-23)
PROC: B548ZZA Ultrasonography of Superior Vena Cava, Guidance (ICD-10-PCS; 2017-01-23)
PROC: 07DQ3ZX Extraction of Sternum Bone Marrow, Percutaneous Approach, Diagnostic (ICD-10-PCS; principal; 2017-01-26 10:00)
DX: D61.818 Other pancytopenia (principal); N10 Acute pyelonephritis; E11.65 Type 2 diabetes mellitus with hyperglycemia; K74.60 Unspecified cirrhosis of liver; E86.0 Dehydration; K57.30 Diverticulosis of large intestine without perforation or abscess without bleeding; K56.41 Fecal impaction; K43.9 Ventral hernia without obstruction or gangrene; E66.09 Other obesity due to excess calories; D50.9 Iron deficiency anemia, unspecified; I10 Essential (primary) hypertension; M19.90 Unspecified osteoarthritis, unspecified site; G89.29 Other chronic pain; E53.8 Deficiency of other specified B group vitamins; Z79.84 Long term (current) use of oral hypoglycemic drugs; Z90.49 Acquired absence of other specified parts of digestive tract; Z90.710 Acquired absence of both cervix and uterus; Z88.0 Allergy status to penicillin; Z88.6 Allergy status to analgesic agent; Z88.8 Allergy status to other drugs, medicaments and biological substances; Z79.899 Other long term (current) drug therapy
CPT/HCPCS: 36415; 36569; 38220; 71010; 74000; 74176; 74181; 76856; 76937; 77001; 80053; 80069; 80076; 81001; 82248; 82378; 82962; 83036; 83540; 83550; 83605; 83615; 83690; 83735; 84100; 84155; 84156; 84165; 84166; 84439; 84443; 84481; 84550; 85025; 85060; 85097; 85651; 86301; 86304; 86677; 86705; 86709; 86803; 87040; 87086; 87340; 88313; 93005; 93970; 96365; 96366; 96375; 96376; 97116; 97162; 99285; C1725; C1893; J1815; J1956; J2060; J2250; J2270; J2405; J2704; J3490; J7050